=== PATIENT | female | born 1980 | race Hispanic/Latino ===

== ENCOUNTER 2022-11-27 06:07 | Day surgery (SDC) | payer OTHER ==
[2022-11-26 14:42] VITALS: BMI 43.0
[2022-11-26 15:10] LABS: Hematocrit 28.9 % (34.9-44.5); Hemoglobin 8.3 g/dL (12.0-15.5); Mean Corpuscular HGB CONC 28.7 g/dL (32.0-36.0); Mean Corpuscular Hemoglobin 21.2 pg (27.0-33.0); Mean Corpuscular Volume 73.9 fl (81.6-98.3); Mean Platelet Volume 10.4 fl (7.4-10.4); Platelet Count 341 10x3/uL (150-450); RBC Distribution Width 17.2 % (11.5-14.5); Red Blood Cell (RBC) Count 3.91 10x6/uL (3.90-5.03); White Blood Cell (WBC) Count 8.9 10x3/uL (3.5-10.5)
[2022-11-26 15:30] LABS: BHCG - Serum Negative (NEGATIVE); Pregs Control Background? CLEAR/WHITE (CLR/WHITE); Pregs Control Bar Appear? YES (CONTROL BAR)
[2022-11-27] MEDS ORDERED: Bupivacaine HCl 0.5%/Epinephrine 1:200,000/PF 30 ml Vial ONE (06:24)
[2022-11-27] MEDS ORDERED: CeleCOXIB 100 MG CAP ONE (06:26)
[2022-11-27] MEDS ORDERED: Famotidine/PF 20 mg/2ml Vial ONE (06:27)
[2022-11-27] MEDS ORDERED: Gabapentin 300 MG CAP ONE (06:27)
[2022-11-27] MEDS ORDERED: PROPOFOL 20 ML ONE ×2 (07:03→08:37)
[2022-11-27] MEDS ORDERED: Fentanyl 250 MCG/5 ML VIAL ONE (07:03)
[2022-11-27] MEDS ORDERED: Midazolam HCl 2 mg/2 ml Vial ONE (07:04)
[2022-11-27] MEDS ORDERED: Rocuronium Bromide 10 MG/ML (10ML VIAL) ONE (07:05)
[2022-11-27] MEDS ORDERED: Dexamethasone 4 mg/ml Vial ONE (07:05)
[2022-11-27] MEDS ORDERED: Lidocaine 2% PF 5 ML VIAL ONE (07:05)
[2022-11-27] MEDS ORDERED: Ondansetron PF 4 MG/2 ML Vial ONE (07:05)
[2022-11-27] MEDS ORDERED: CEFAZOLIN 2 GM VIAL ONE (07:26)
[2022-11-27] MEDS ORDERED: Glycopyrrolate 0.2 MG/ML 5 ML SYRINGE ONE (08:38)
[2022-11-27] MEDS ORDERED: SUGAMMADEX SODIUM 200 MG/2 ML VIAL ONE (09:07)
[2022-11-27] MEDS ORDERED: Meperidine HCl/PF 25 MG/ML VIAL ONE (09:19)
[2022-11-27] MEDS ORDERED: fentaNYL 50 mcg/mL 1 mL Vial ONE ×2 (09:19→10:20)
[2022-11-27] MEDS ORDERED: traMADol HCl 50 MG TAB ONE (10:58)
== END 2022-11-27 12:20 | disposition home or self-care (01) ==
LOC: CSHSDC 06:07
PROVIDERS: ATTEND Student in an Organized Health Care Education/Training Program
PROC: 0UT94ZZ Resection of Uterus, Percutaneous Endoscopic Approach (ICD-10-PCS; principal; 2022-11-27)
PROC: 0UT74ZZ Resection of Bilateral Fallopian Tubes, Percutaneous Endoscopic Approach (ICD-10-PCS; principal; 2022-11-27)
DX: N72 Inflammatory disease of cervix uteri (principal); N87.9 Dysplasia of cervix uteri, unspecified; D25.9 Leiomyoma of uterus, unspecified; N73.6 Female pelvic peritoneal adhesions (postinfective); E66.01 Morbid (severe) obesity due to excess calories; D64.9 Anemia, unspecified; Z79.899 Other long term (current) drug therapy
CPT/HCPCS: 84703; 85027; 86850; 86900; 86901; 88307; J1100; J2001; J2175; J2250; J2405; J2704; J3010; S0028